=== PATIENT | female | born 1965 | race Caucasian/White ===

== ENCOUNTER → 2016-09-17 | Outpatient (CLI) | payer BC ==
[~2016-09-17] MED LIST: ACEB200C PO; MULTIVITAMIN PACK PO
[2016-09-17 17:37] LABS: URINE APPEARANCE CLEAR (CLEAR); URINE BILIRUBIN NEG (NEG); URINE COLOR YELLOW; URINE NITRITE NEG (NEG); URINE SPECIFIC GRAVITY 1.002 (1.000-1.030); UROBILINOGEN NEG (NEG)
[2016-09-17 17:51] LABS: MANUAL MICROSCOPIC REQUIRED? NO; REVIEW REQ? NO
== END | disposition home or self-care (01) ==
LOC: C.LABSPEC 14:43
PROVIDERS: ATTEND Obstetrics & Gynecology
DX: N95.1 Menopausal and female climacteric states (principal); R10.2 Pelvic and perineal pain

== ENCOUNTER → 2016-09-17 | Outpatient (CLI) | payer BC | END | disposition home or self-care (01) | LOC: C.PAPS 10:38 | PROVIDERS: ATTEND Obstetrics & Gynecology | DX: Z01.419 Encounter for gynecological examination (general) (routine) without abnormal findings (principal) ==

== ENCOUNTER → 2017-04-07 | Outpatient (CLI) | payer BC ==
--- NOTE | 2017-04-07 14:05 | MAMMOGRAPHY REPORT ---
BILATERAL DIGITAL SCREENING MAMMOGRAM TOMOSYNTHESIS WITH CAD: 04/07/2017 CLINICAL HISTORY: Routine screening. Patient has no complaints. TECHNIQUE: Breast tomosynthesis in addition to standard 2D mammography was performed. Current study was also evaluated with a Computer Aided Detection (CAD) system. COMPARISON: Comparison is made to exams dated: 01/10/2016 mammogram, 04/19/2014 mammogram, 04/12/2013 philippe mogram, 06/15/2012 mammogram, 12/05/2011 mammogram, and 12/05/2011 ultrasound - [facility] nter. BREAST COMPOSITION: There are scattered areas of fibroglandular density in both breasts. There are benign involutional changes comparing to more remote prior mammograms. FINDINGS: No new suspicious mass, architectural distortion or cluster of microcalcifications is seen . IMPRESSION: ACR BI-RADS CATEGORY 1: NEGATIVE There is no mammographic evidence of malignancy. A 1 year screening mammogram is recommended. The pa tient will receive written notification of the results. Approximately 10% of breast cancers are not detected with mammography. A negative mammographic report should not delay biopsy if a clinically suggestive mass is present. Anali Jeffery M.D. ay/:04/07/2017 13:50:12 Administrative Secretary: Maxine BREWSTER(R)(M), [facility] letter sent: Normal 1/2 BI-RADS Code: ACR BI-RADS Category 1: Negative
== END | disposition home or self-care (01) ==
LOC: C.MAMM 13:21
PROVIDERS: ATTEND Obstetrics & Gynecology
DX: Z12.31 Encounter for screening mammogram for malignant neoplasm of breast (principal)

== ENCOUNTER 2017-07-26 15:55 | Emergency (ER) | payer BC ==
[~2017-07-26] VITALS: Ht 170.2 cm; Wt 78.2 kg
[2017-07-26 15:57] VITALS: TEMP 37.2; Ht 170.2 cm; Wt 78.2 kg
[2017-07-26] MEDS ORDERED: IBUPROFEN 600 MG TAB PO STA (16:14)
--- NOTE | 2017-07-26 16:22 | EMERGENCY ROOM VISIT NOTE ---
History Report prepared by Nata: Memo Montiel Under the Supervision of: Dr. Joseph Larry M.D. First contact with patient: 16:04 Chief Complaint: FLU LIKE SX Stated Complaint: FLU - RAISED HEARTRATE History of Present Illness The patient is a 51 year old female who presents to the Emergency Room with complaints of persistent generalized illness beginning a few days ago. The patient's symptoms include sore throat, body aches, fever of 102 degrees, cough and tachycardia. She states that she has had cold-like symptoms recently for the past several weeks, but they had improved a few days ago. She is worried because she has not been able to lower her heart rate. The patient has a history of intermittent tachycardia, and feels that sickness often causes it. She has a history of hypertension, and states that she has not missed any doses of her medication recently. She denies urinary symptoms, vomiting or diarrhea. The patient has taken DayQuil which has improved her symptoms. She has not had a flu shot this year. 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 Source of History: patient Onset: A few days ago Position: other (generalized) Quality: other (illness) Timing: other (persistent) Modifying Factors (Relieving): other (DayQuil) Associated Symptoms: + fevers (102 degrees), + sorethroat, + cough, No vomiting, No diarrhea, No urinary symptoms Note: Additional symptoms: body aches and tachycardia. Review of Systems See HPI for pertinent positives & negatives. A total of 10 systems reviewed and were otherwise negative. Past Medical & Surgical Medical Problems: (1) Endometriosis (2) Kidney stones Family History Cancer Diabetes mellitus Gallbladder disease Hypertension Kidney disease Kidney stones Lung disease Social History Smoking Status: Never Smoker Alcohol Use: occasionally Marital Status: Housing Status: lives with family Occupation Status: employed Current/Historical Medications Scheduled Acebutolol Hcl (Sectral Cap), 200 MG PO BID Cephalexin Monohydrate (Keflex), 500 MG PO TID Allergies Coded Allergies: Sulfa Antibiotics (Verified Allergy, Severe, GI UPSET,ITCHY, 07/26/17) Physical Exam Vital Signs Date Time Temp Pulse Resp B/P (MAP) Pulse Ox O2 Delivery O2 Flow Rate FiO2 07/26/17 17:49 105 18 120/69 95 Room Air 07/26/17 15:57 37.2 112 20 145/88 95 Room Air Physical Exam GENERAL: Patient is in no acute distress. HEENT: No acute trauma, normocephalic atraumatic, mucous membranes moist, mild nasal congestion, no scleral icterus. TMs clear bilaterally. Mild throat erythema without exudate. NECK: No stridor, no adenopathy, no meningismus, trachea is midline. LUNGS: Clear to auscultation bilaterally, no wheeze, no rhonchi, breath sounds equal. HEART: Mildly tachycardic with a regular rhythm. No murmurs. ABDOMEN: Soft, nontender, bowel sounds positive, no hernias, no peritonitis. EXTREMITIES: No cyanosis or edema, full range of motion of all the joints without pain or difficulty, no signs for acute trauma. NEUROLOGIC: Oriented x 3, no acute motor or sensory deficits, no focal weakness. SKIN: No rash, no jaundice, no diaphoresis. Medical Decision & Procedures ER Provider Diagnostic Interpretation: Radiology results as stated below per my review and radiologist interpretation: CHEST ONE VIEW PORTABLE FINDINGS: The heart is normal in size. There is no focal pulmonary consolidation. There are no pleural effusions. There is no failure.[ IMPRESSION: AP portable study. No acute findings. Electronically signed by: Haja Juarez M.D. 07/26/2017 4:47 PM Laboratory Results Test 07/26/17 16:19 Influenza Type A Antigen Neg for Influ A (NEG) Influenza Type B Antigen Neg for Influ B (NEG) Date/Time Source Procedure Growth Status 07/26/17 16:19 Throat Group A Streptococcus Screen - Final SPECIMEN POSITIVE FOR GROUP A BETA ST... Complete 07/26/17 16:19 Throat Group A Streptococcus Screen (ANNE MARIE) - Final Complete Laboratory results reviewed by me. Medications Administered Medications (Trade) Dose Ordered Sig/Zenobia Route Start Time Stop Time Status Last Admin Dose Admin Ibuprofen (Motrin Tab) 600 mg NOW STAT PO 07/26/17 16:14 07/26/17 16:16 DC 07/26/17 16:29 600 MG Cephalexin Monohydrate (Keflex Cap) 500 mg NOW STAT PO 07/26/17 16:39 07/26/17 16:40 DC 07/26/17 16:48 500 MG ECG Indication: tachycardia Rate (beats per minute): 111 Rhythm: sinus tachycardia Findings: no acute ischemic change, no ectopy ED Course 1608: The patient was evaluated in room C11B. A complete history and physical exam was performed. 1614: Ordered Motrin Tab 600 mg PO. 1639: Ordered Keflex Cap 500 mg PO. 1755: Reevaluated the patient. Discussed results and discharge instructions: she verbalized understanding and agreement. The patient is ready for discharge. Medical Decision The patient is a 51 year old female who presents to the ED with complaints of generalized illness. Differential diagnoses considered include sinusitis, bronchitis, pneumonia, influenza, strep pharyngitis, otitis media, dehydration, and dysrhythmia. Influenza test today was negative. Strep testing was positive. Chest film did not show pneumonia or CHF. On exam, the patient was mildly tachycardic, no cardiac murmurs. EKG demonstrated a mild sinus tachycardia. The patient's illness is responsible for her faster heart rate. She has a propensity to have tachycardia-she does take a beta munira to prevent tachycardia. The patient received oral Motrin and oral Keflex. She is being discharged on Keflex for 10 days for the strep pharyngitis. She should return if worsening, hydration and rest were encouraged. Motrin and/or Tylenol for fever. Medication Reconcilliation Current Medication List: was personally reviewed by me Blood Pressure Screening Patient's blood pressure: Elevated blood pressure Blood pressure disposition: Elevated BP felt to be situational Impression Primary Impression: Strep pharyngitis Additional Impressions: Flu-like symptoms Tachycardia Scribe Attestation The scribe's documentation has been prepared under my direction and personally reviewed by me in its entirety. I confirm that the note above accurately reflects all work, treatment, procedures, and medical decision making performed by me. Departure Information Dispostion Home / Self-Care Prescriptions Cephalexin Monohydrate (Keflex) 500 Mg Cap 500 MG PO TID for 10 Days, #30 CAP Prov: Joseph Larry M.D. 07/26/17 Referrals Coral Garcia D.O. (PCP) Forms HOME CARE DOCUMENTATION FORM, IMPORTANT VISIT INFORMATION Patient Instructions My [facility] Additional Instructions motrin or tylenol for fever and aches stay well hydrated keflex 3x per day for 10 days return if worsening chest film was clear, flu test was negative Problem Qualifiers
[2017-07-26] MEDS ORDERED: CEPHALEXIN MONOHYDRATE 250 MG CAP PO STA (16:39)
--- NOTE | 2017-07-26 16:49 | DIAGNOSTIC IMAGING REPORT ---
CHEST ONE VIEW PORTABLE CLINICAL HISTORY: cough, fever COMPARISON STUDY: No previous studies for comparison. FINDINGS: The heart is normal in size. There is no focal pulmonary consolidation. There are no pleural effusions. There is no failure.[ IMPRESSION: AP portable study. No acute findings. Electronically signed by: Haja Juarez M.D. 07/26/2017 4:47 PM Dictated Date/Time: 07/26/2017 4:47 PM
[2017-07-26] MEDS ORDERED: CEPH500C PO (18:00)
[2017-07-26 18:11] VITALS: BP 143/86; PULSE 104; O2SAT 95
== END 2017-07-26 18:11 | disposition home or self-care (01) ==
LOC: C.EDB 15:56 → C.EDC 18:11
DX: J02.0 Streptococcal pharyngitis (principal); R68.89 Other general symptoms and signs; R00.0 Tachycardia, unspecified; Z87.442 Personal history of urinary calculi; N80.9 Endometriosis, unspecified; Z80.9 Family history of malignant neoplasm, unspecified; Z83.3 Family history of diabetes mellitus; Z83.79 Family history of other diseases of the digestive system; Z84.1 Family history of disorders of kidney and ureter; Z83.6 Family history of other diseases of the respiratory system

== ENCOUNTER → 2017-10-22 | Outpatient (CLI) | payer BC ==
[~2017-10-22] MED LIST changes: -MULTIVITAMIN PACK PO
--- NOTE | 2017-10-22 08:55 | DIAGNOSTIC IMAGING REPORT ---
PELVIS CT CT DOSE: 627.86 mGy.cm HISTORY: COCCYDYNIA ATTN:COCCYX/SACRUM TECHNIQUE: Multiaxial CT images of the pelvis were performed and reformatted in the sagittal and coronal plane without the use of contrast. A dose lowering technique was utilized adhering to the principles of ALARA. COMPARISON: None. FINDINGS: Mild thickening and irregularity at the S5 level which could represent an old, healed fracture. No acute fractures identified within the sacrum or coccyx. No erosions identified. Presacral soft tissues are unremarkable. Bilateral sacroiliac joints are within normal limits for age. No acute fracture or dislocation within the bilateral hips. The sacral canal and neural foramen are widely patent. Mild bladder wall thickening. A few colonic diverticula. Normal appendix. No pelvic lymphadenopathy. IMPRESSION: 1. No acute fractures identified within the sacrum or coccyx. 2. Mild bladder wall thickening which could be due to underdistention. Recommend correlation with urinalysis. Electronically signed by: Barry Cabral M.D. 10/22/2017 8:54 AM Dictated Date/Time: 10/22/2017 8:42 AM
== END | disposition home or self-care (01) ==
LOC: C.CTS 08:13
PROVIDERS: ATTEND Orthopaedic Surgery Orthopaedic Surgery of the Spine
DX: M53.3 Sacrococcygeal disorders, not elsewhere classified (principal)